=== PATIENT | female | born 1930 | race Caucasian/White ===

== ENCOUNTER 2020-06-27 09:57 | Inpatient (IN) ==
[2020-06-27] MEDS ORDERED: SODIUM CHLORIDE 0.9% 1,000 ML IV STA ×2 (10:26→11:31)
[2020-06-27] MEDS ORDERED: PANTOPRAZOLE 40 MG VIAL IV STA (10:35)
[2020-06-27 10:41] LABS: Basophils % 0.3 % (0.0-0.8); Eosinophils % 0.4 % (0.00-10.9); Hematocrit 26.2 VOL% (35.7-47.0); Hemoglobin 8.1 GM/DL (12.0-16.0); Immature Granulocytes % 0.3 %; Immature Granulocytes Absolute 0.03 #; Lymphocytes # 1.7 10*3/uL (1.4-4.0); Lymphocytes % 17.5 % (21.3-54.2); Mean Corpuscular HGB Conc 30.9 GM/DL (32-36); Mean Corpuscular Volume 104.4 FL (87-102); Mean Platelet Volume 11.6 FL (9.6-12.0); Monocytes % 6.2 % (1.7-12.7); Neutrophils % 75.3 % (38.7-73.9); Platelet Count 237 T/CUMM (130-400); Red Blood Count 2.51 MC/CUMM (3.8-5.5); Red Cell Distribution Width 13.1 % (9.3-17.3); White Blood Count 9.6 T/CUMM (4-12)
[2020-06-27 11:02] LABS: Alanine Aminotransferase 24 U/L (13-56); Albumin 2.9 G/DL (3.4-5.0); Alkaline Phosphatase 43 U/L (45-117); Aspartate Amino Transferase 24 U/L (0-37); Blood Urea Nitrogen 40 MG/DL (7-18); Carbon Dioxide 24 MMOL/L (21-32); Estimated Glom Filtration Rate 70 ML/MIN; Glucose 256 MG/DL (74-106); Osmolality,Calculated 291.8 MOS/KG (273-304); Potassium 4.1 MMOL/L (3.5-5.1); Sodium 137 MMOL/L (136-145); Total Protein 5.9 G/DL (6.4-8.3); Troponin I < 0.015 NG/ML (0.00-0.045)
[2020-06-27 11:09] LABS: INR 1.1; PT Patient Result 12.1 SECS (9.8-11.9)
[2020-06-27 11:32] LABS: Partial Thromboplastin Time < 20.0 SECS (23.9-33.8)
[2020-06-27] MEDS ORDERED: SODIUM CHLORIDE 0.9% 1,000 ML IV PRN ×2 (12:07→16:36)
[2020-06-27] MEDS ORDERED: ONDANSETRON 4 MG/2 ML VIAL IV PRN (12:09)
[2020-06-27] MEDS ORDERED: MORPHINE 4 MG/1 ML VIAL IV PRN (12:09)
[2020-06-27] MEDS ORDERED: NICOTINE 21 MG/24 HR PATCH TRANSDERM PRN (12:09)
[2020-06-27] MEDS ORDERED: guaiFENesin/DM ER 600-30 MG TABLET PO PRN (12:09)
[2020-06-27] MEDS ORDERED: ACETAMINOPHEN 325 MG TABLET PO PRN (12:09)
[2020-06-27] MEDS ORDERED: PROMETHAZINE 25 MG TABLET PO PRN (12:09)
[2020-06-27] MEDS ORDERED: CALCIUM CARBONATE CHEW 500 MG TABLET PO PRN (12:09)
[2020-06-27] MEDS ORDERED: ALUMINUM/MAGNES/SIMETH MAX STR 30 ML UDCUP PO PRN (12:09)
[2020-06-27] MEDS ORDERED: ALBUTEROL 2.5 MG/3 ML NEB RESP TX PRN (12:09)
[2020-06-27] MEDS ORDERED: SIMETHICONE CHEW 125 MG TABLET PO PRN (12:09)
[2020-06-27] MEDS ORDERED: hydrALAZINE 20 MG/1 ML VIAL IV PRN (12:09)
[2020-06-27] MEDS ORDERED: diphenhydrAMINE CAP 25 MG CAPSULE PO PRN (12:09)
[2020-06-27] MEDS ORDERED: DEXTROSE 50% 25 GM/50 ML VIAL IV PRN ×2 (12:09→12:14)
[2020-06-27] MEDS ORDERED: GLUCAGON 1 MG VIAL IM PRN ×2 (12:09→12:14)
[2020-06-27] MEDS: PANTOPRAZOLE INJ 200 MG in SODIUM CHLORIDE 0.9% 250 ML IV SCH (12:45)
[2020-06-27] MEDS: FAMOTIDINE 20 MG/2 ML VIAL IV SCH ×2 (12:45→23:57)
[2020-06-27 13:49] LABS: Hematocrit 22.3 VOL% (35.7-47.0); Hemoglobin 7.1 GM/DL (12.0-16.0)
[2020-06-27] MEDS ORDERED: traMADol 50 MG TABLET PO PRN (15:09)
[2020-06-27] MEDS ORDERED: METOPROLOL TARTRATE 100 MG TABLET PO ONE (15:40)
[2020-06-27] MEDS: MAGNESIUM OXIDE 400 MG TABLET PO SCH (16:23)
[2020-06-27] MEDS ORDERED: PROTHROMBIN COMPLEX CONC 3,500 UNIT in IV BAG 1 EACH IV ONE (17:13)
[2020-06-27] MEDS: DEXT 5% NACL 0.9% KCL 40 MEQ 40 MEQ/1,000 ML BAG IV SCH (17:41)
[2020-06-27] MEDS: INSULIN LISPRO 100 UNIT/ML SUBCUT SCH ×2 (18:07→20:32)
[2020-06-27] MEDS: METOPROLOL TARTRATE 100 MG TABLET PO SCH (20:42)
[2020-06-27] MEDS ORDERED: METOPROLOL TARTRATE 100 MG TABLET PO SCH (21:00)
[2020-06-27 21:25] LABS: Hematocrit 29.7 VOL% (35.7-47.0)
[2020-06-27 21:34] LABS: Hemoglobin 9.4 GM/DL (12.0-16.0)
[2020-06-27] MEDS: ZALEPLON 5 MG CAPSULE PO PRN (23:58)
[2020-06-28 05:56] LABS: Hemoglobin 8.9 GM/DL (12.0-16.0)
[2020-06-28 05:57] LABS: Basophils % 0.4 % (0.0-0.8); Eosinophils # 0.1 10*3/uL (0.0-0.87); Eosinophils % 1.6 % (0.00-10.9); Hematocrit 27.9 VOL% (35.7-47.0); Immature Granulocytes % 0.4 %; Immature Granulocytes Absolute 0.03 #; Lymphocytes # 2.7 10*3/uL (1.4-4.0); Lymphocytes % 33.2 % (21.3-54.2); Mean Corpuscular HGB Conc 32.3 GM/DL (32-36); Mean Corpuscular Volume 97.2 FL (87-102); Mean Platelet Volume 11.6 FL (9.6-12.0); Monocytes % 9.7 % (1.7-12.7); Neutrophils % 54.7 % (38.7-73.9); Platelet Count 198 T/CUMM (130-400); Red Blood Count 2.87 MC/CUMM (3.8-5.5); Red Cell Distribution Width 15.7 % (9.3-17.3); White Blood Count 8.1 T/CUMM (4-12)
[2020-06-28 06:20] LABS: Calcium 7.8 MG/DL (8.5-10.1); Osmolality,Calculated 295.7 MOS/KG (273-304); Potassium 4.4 MMOL/L (3.5-5.1)
[2020-06-28] MEDS: LEVOTHYROXINE 100 MCG TABLET PO SCH (06:22)
[2020-06-28] MEDS: INSULIN LISPRO 100 UNIT/ML SUBCUT SCH ×4 (09:13→21:50)
[2020-06-28] MEDS: MULTIVITAMIN (CENTRUM) TABLET PO SCH (09:15)
[2020-06-28] MEDS: ATORVASTATIN 10 MG TABLET PO SCH (09:15)
[2020-06-28] MEDS: METOPROLOL TARTRATE 100 MG TABLET PO SCH ×2 (09:15→21:51)
[2020-06-28] MEDS: MAGNESIUM OXIDE 400 MG TABLET PO SCH ×3 (09:15→17:24)
[2020-06-28] MEDS: DEXT 5% NACL 0.9% KCL 40 MEQ 40 MEQ/1,000 ML BAG IV SCH (09:16)
[2020-06-28] MEDS: FAMOTIDINE 20 MG/2 ML VIAL IV SCH ×2 (13:01→23:35)
[2020-06-28] MEDS: PANTOPRAZOLE INJ 200 MG in SODIUM CHLORIDE 0.9% 250 ML IV SCH (13:22)
[2020-06-28] MEDS: ZALEPLON 5 MG CAPSULE PO PRN (21:51)
[2020-06-29] MEDS: DEXT 5% NACL 0.9% KCL 40 MEQ 40 MEQ/1,000 ML BAG IV SCH ×2 (02:54→21:20)
[2020-06-29] MEDS: LEVOTHYROXINE 100 MCG TABLET PO SCH (05:29)
[2020-06-29 05:47] LABS: Basophils % 0.4 % (0.0-0.8); Eosinophils # 0.2 10*3/uL (0.0-0.87); Eosinophils % 2.2 % (0.00-10.9); Hematocrit 27.7 VOL% (35.7-47.0); Hemoglobin 8.7 GM/DL (12.0-16.0); Immature Granulocytes % 0.4 %; Immature Granulocytes Absolute 0.03 #; Lymphocytes # 2.7 10*3/uL (1.4-4.0); Lymphocytes % 34.3 % (21.3-54.2); Mean Corpuscular HGB Conc 31.4 GM/DL (32-36); Mean Corpuscular Volume 100.4 FL (87-102); Mean Platelet Volume 11.5 FL (9.6-12.0); Monocytes % 8.7 % (1.7-12.7); Platelet Count 193 T/CUMM (130-400); Red Blood Count 2.76 MC/CUMM (3.8-5.5); Red Cell Distribution Width 15.5 % (9.3-17.3); White Blood Count 7.8 T/CUMM (4-12)
[2020-06-29 06:13] LABS: Risk Ratio 1.67; VLDL CHOLESTEROL 17.6 MG/DL
[2020-06-29] MEDS: INSULIN LISPRO 100 UNIT/ML SUBCUT SCH ×4 (08:35→21:21)
[2020-06-29] MEDS: MAGNESIUM OXIDE 400 MG TABLET PO SCH ×3 (09:39→17:02)
[2020-06-29] MEDS ORDERED: propofoL 200 MG/20 ML VIAL IV ONE (09:51)
[2020-06-29] MEDS ORDERED: LIDOCAINE 2% 5 ML VIAL ONE (09:51)
[2020-06-29] MEDS: LACTATED RINGERS 1,000 ML IV SCH (10:00)
[2020-06-29] MEDS: MULTIVITAMIN (CENTRUM) TABLET PO SCH (12:00)
[2020-06-29] MEDS: ATORVASTATIN 10 MG TABLET PO SCH (12:00)
[2020-06-29] MEDS: METOPROLOL TARTRATE 100 MG TABLET PO SCH ×2 (12:00→21:22)
[2020-06-29] MEDS: FAMOTIDINE 20 MG/2 ML VIAL IV SCH (12:01)
[2020-06-29] MEDS: PANTOPRAZOLE INJ 200 MG in SODIUM CHLORIDE 0.9% 250 ML IV SCH (12:14)
[2020-06-29] MEDS: ZALEPLON 5 MG CAPSULE PO PRN (21:22)
[2020-06-30] MEDS: FAMOTIDINE 20 MG/2 ML VIAL IV SCH ×2 (00:08→11:56)
[2020-06-30 05:09] LABS: Basophils % 0.3 % (0.0-0.8); Eosinophils # 0.2 10*3/uL (0.0-0.87); Hemoglobin 8.5 GM/DL (12.0-16.0); Immature Granulocytes % 0.3 %; Immature Granulocytes Absolute 0.02 #; Lymphocytes # 2.7 10*3/uL (1.4-4.0); Lymphocytes % 38.2 % (21.3-54.2); Mean Corpuscular HGB Conc 31.5 GM/DL (32-36); Mean Corpuscular Volume 101.1 FL (87-102); Mean Platelet Volume 11.8 FL (9.6-12.0); Monocytes % 9.5 % (1.7-12.7); Neutrophils % 48.7 % (38.7-73.9); Platelet Count 208 T/CUMM (130-400); Red Blood Count 2.67 MC/CUMM (3.8-5.5); Red Cell Distribution Width 15.1 % (9.3-17.3); White Blood Count 6.9 T/CUMM (4-12)
[2020-06-30 05:25] LABS: Calcium 7.5 MG/DL (8.5-10.1); Osmolality,Calculated 289.7 MOS/KG (273-304); Potassium 4.5 MMOL/L (3.5-5.1)
[2020-06-30] MEDS: LEVOTHYROXINE 100 MCG TABLET PO SCH (06:56)
[2020-06-30] MEDS: INSULIN LISPRO 100 UNIT/ML SUBCUT SCH ×2 (08:40→11:56)
[2020-06-30] MEDS: MULTIVITAMIN (CENTRUM) TABLET PO SCH (08:49)
[2020-06-30] MEDS: ATORVASTATIN 10 MG TABLET PO SCH (08:50)
[2020-06-30] MEDS: MAGNESIUM OXIDE 400 MG TABLET PO SCH ×2 (08:50→11:56)
[2020-06-30] MEDS: METOPROLOL TARTRATE 100 MG TABLET PO SCH (08:50)
[2020-06-30] MEDS: LACTATED RINGERS 1,000 ML IV SCH (09:04)
[2020-06-30 11:42] VITALS: BP 129/89
[2020-06-30] MEDS: PANTOPRAZOLE INJ 200 MG in SODIUM CHLORIDE 0.9% 250 ML IV SCH (11:56)
[2020-06-30] MEDS: DEXT 5% NACL 0.9% KCL 40 MEQ 40 MEQ/1,000 ML BAG IV SCH (11:56)
== END 2020-06-30 12:54 | disposition home or self-care (01) | DRG 813 ==
LOC: EDUNIT# → EDBD → N.ED 09:57 → SUATTDRO 12:09 → N.EDINP 12:09 → N.TELEN 14:51
PROVIDERS: ADMIT Internal Medicine; ATTEND Internal Medicine

== ENCOUNTER 2020-10-15 04:44 | Observation (INO) ==
[2020-10-15] MEDS ORDERED: ASPIRIN EC 325 MG TABLET PO STA (05:20)
[2020-10-15 05:24] LABS: Basophils % 0.3 % (0.0-0.8); Eosinophils # 0.2 10*3/uL (0.0-0.87); Eosinophils % 1.7 % (0.00-10.9); Hemoglobin 12.2 GM/DL (12.0-16.0); Immature Granulocytes % 0.3 %; Immature Granulocytes Absolute 0.03 #; Lymphocytes # 2.9 10*3/uL (1.4-4.0); Lymphocytes % 32.4 % (21.3-54.2); Mean Corpuscular HGB Conc 31.3 GM/DL (32-36); Mean Corpuscular Volume 95.4 FL (87-102); Mean Platelet Volume 11.1 FL (9.6-12.0); Monocytes % 8.3 % (1.7-12.7); Platelet Count 204 T/CUMM (130-400); Red Blood Count 4.09 MC/CUMM (3.8-5.5); Red Cell Distribution Width 13.4 % (9.3-17.3); White Blood Count 8.8 T/CUMM (4-12)
[2020-10-15 05:38] LABS: PT Patient Result 11.5 SECS (10.5-12.0); Partial Thromboplastin Time 27.3 SECS (23.9-33.8)
[2020-10-15 05:43] LABS: Alanine Aminotransferase 19 U/L (13-56); Albumin 3.5 G/DL (3.4-5.0); Alkaline Phosphatase 63 U/L (45-117); Aspartate Amino Transferase 17 U/L (0-37); Blood Urea Nitrogen 17 MG/DL (7-18); Calcium 8.7 MG/DL (8.5-10.1); Carbon Dioxide 26 MMOL/L (21-32); Estimated Glom Filtration Rate 75 ML/MIN; Glucose 170 MG/DL (74-106); Osmolality,Calculated 282.5 MOS/KG (273-304); Potassium 4.4 MMOL/L (3.5-5.1); Sodium 139 MMOL/L (136-145); Total Protein 6.3 G/DL (6.4-8.2)
[2020-10-15] MEDS ORDERED: cefTRIAXone 1,000 MG in SODIUM CHLORIDE 0.9% 100 ML IV STA (05:47)
[2020-10-15] MEDS ORDERED: GLUCAGON 1 MG VIAL IM PRN ×2 (05:51)
[2020-10-15] MEDS ORDERED: DEXTROSE 50% 25 GM/50 ML VIAL IV PRN ×2 (05:51)
[2020-10-15] MEDS ORDERED: LABETALOL 20 MG/4 ML SYRINGE IV PRN (05:51)
[2020-10-15] MEDS ORDERED: ONDANSETRON 4 MG/2 ML VIAL IV PRN (05:51)
[2020-10-15] MEDS ORDERED: ENOXAPARIN 40 MG/0.4 ML SYRINGE SUBCUT SCH (06:00)
[2020-10-15 06:20] LABS: Risk Ratio 1.69; VLDL CHOLESTEROL 13.8 MG/DL
[2020-10-15 06:46] LABS: Bilirubin,Urine Negative (Negative); Blood, Urine Negative (Negative); Glucose,Urine (UA) Negative (Negative); Hyaline Casts,Urine 4 /LPF (0-3); Ketones,Urine 5 mg/dL (Negative); Mucus,Urine Occasional /LPF (Occasional); Nitrite,Urine Negative (Negative); Protein,Urine 30 MG/DL; RBC,Urine 1 /HPF (0-4); Squamous Epithelial Cell,Urine Few /HPF (0-10); Urine Appearance Slightly Hazy (Clear); Urine Color Yellow (Yellow); Urine Specific Gravity 1.018 (1.001-1.035); Urine Urobilinogen < 2.0 EU/DL (0.2-1.0)
[2020-10-15 06:57] LABS: Barbiturates Screen,Urine Negative (Negative); Benzodiazepines Screen,Urine Negative (Negative); Cannabinoid Screen,Urine Negative (Negative); Opiate Screen,Urine Negative (Negative); Phencyclidine Screen,Urine Negative (Negative)
[2020-10-15] MEDS ORDERED: PANTOPRAZOLE 40 MG TABLET PO SCH (09:00)
[2020-10-15] MEDS ORDERED: ASPIRIN 325 MG TABLET PO SCH (09:00)
[2020-10-15] MEDS: INSULIN REGULAR 100 UNIT/ML SUBCUT SCH ×2 (09:48→12:26)
[2020-10-15 11:32] VITALS: BP 122/73
[2020-10-15] MEDS ORDERED: APIXABAN 5 MG TABLET PO SCH (21:00)
[2020-10-16] MEDS ORDERED: ASPIRIN 325 MG TABLET PO SCH (09:00)
== END 2020-10-15 16:33 | disposition home health service (06) ==
LOC: SUATTDRO → N.EDINP 04:44 → N.ED 04:44 → N.4E 07:31
PROVIDERS: ADMIT Internal Medicine; ATTEND Internal Medicine